=== PATIENT | female | born 1955 | race Caucasian/White ===

== ENCOUNTER 2016-12-04 05:54 | Inpatient (IN) | payer MEDICARE, OTHER ==
[2016-11-27 10:59] LABS: BASOPHILS 0.3 %; BASOPHILS ABSOLUTE 0.03 10/3/uL (0.0-0.16); EOSINOPHILS 0.2 %; EOSINOPHILS ABSOLUTE 0.02 10/3/uL (0.0-0.53); HEMATOCRIT 29.3 % (36.0-48.0); HEMOGLOBIN 9.8 g/dL (12.0-16.0); IMMATURE GRANULOCYTES 0.4 %; IMMATURE GRANULOCYTES ABSOLUTE 0.05 10/3/uL (0.0-0.11); LYMPHOCYTES 11.6 %; LYMPHOCYTES ABSOLUTE 1.35 10/3/uL (0.67-4.30); MEAN CORPUS HGB CONC 33.4 g/dL (32.0-36.0); MEAN CORPUSCULAR VOLUME 92.7 fL (80-100); MEAN PLATELET VOLUME 8.8 fL (9.2-13.0); MONOCYTES 5.7 %; MONOCYTES ABSOLUTE 0.66 10/3/uL (0.21-1.20); NEUTROPHILS 81.8 %; PLATELET COUNT 538 10/3/uL (150-400); RBC DISTRIBUTION WIDTH 17.8 % (12.0-16.0); RED CELL COUNT 3.16 10/6/uL (4.0-5.6); WHITE BLOOD CELLS 11.6 10/3/uL (4.5-10.5)
[2016-11-27 11:00] LABS: MANUAL DIFF NO %
[2016-11-27 11:05] LABS: INTERNATIONAL NORMAL RATI 1.9 UNITS (-); PROTIME (NOT ORD) 21.3 SEC (12.0-14.5)
[2016-11-27 11:12] LABS: BUN (BLOOD UREA NITROGEN) 17 MG/DL (6-23); CALCIUM, SERUM 8.8 MG/DL (8.5-10.4); CHLORIDE, SERUM 102 MMOL/L (96-112); CO2 (CARBON DIOXIDE) 31 MMOL/L (24-34); CREATININE 0.74 MG/DL (0.55-1.02); GFR AFRICAN AMERICAN 101 ML/MIN (>=60); GFR NON AFRICAN AMERICAN 87 ML/MIN (>=60); GLUCOSE, SERUM 105 MG/DL (60-99); POTASSIUM, SERUM 3.7 MMOL/L (3.5-5.3); SODIUM, SERUM 140 MMOL/L (135-148)
--- NOTE | ~2016-12-04 | OP ---
Record Of Operation [facility] [address] [place]. [address] NAME: JORGE BARILLAS : 53 STATUS : DIS IN PAT#: [id number] AGE: 61 ADM/REG DATE : 12/04/16 MR#: [id number] REPORT SERV DATE: 12/05/16 DICTATED BY: JERAMIE SHERMAN. DATE: 12/04/16 REPORT STATUS : Draft TRANSCRIBED BY: MODL DATE: 12/04/16 DATE OF PROCEDURE: 12/04/2016 OPERATIVE SURGEON: Jeramie Sherman M.D. OPERATIVE GOLF COURSE MANAGER: PRAVEENA Mercer COMPLICATIONS: None. ESTIMATED BLOOD LOSS: Less than 100 mL. DISPOSITION: Stable to recovery room. ANESTHESIA: General. PREOPERATIVE DIAGNOSES: 1. Right shoulder pain. 2. End-stage glenohumeral joint osteoarthritis. POSTOPERATIVE DIAGNOSES: 1. Right shoulder pain. 2. End-stage glenohumeral joint osteoarthritis. OPERATIVE PROCEDURE: 1. Right shoulder examination under anesthesia. 2. Right total shoulder arthroplasty using Biomet comprehensive total shoulder system. IMPLANTS USED: A 4 mm small glenoid with Regenerex post a 46 x 18 mm modular head with a standard adapter with B offset and an 11 x 83 mm mini humeral stem. OPERATIVE PROCEDURE: The diagnoses listed above as well as the recommended surgical procedure and risks and benefits thereof were discussed in full detail with Jorge Barillas and her family on the morning of 12/04/2016. The patient and family asked appropriate questions which were answered to their satisfaction. An informed consent was signed, witnessed, and place in the chart. The right upper extremity was marked for confirmation and an interscalene block was placed by the anesthesia team with good success. The patient was then wheeled to the operative arena where general endotracheal anesthesia was administered. The patient was placed in the beachchair positioner with all nonoperative extremities and head well padded and secured for the duration of the case. The patient received pre- operative antibiotics. A surgical pause was performed confirming both the correct patient as well as the proper surgical site and procedure. All present were in agreement. All standard anatomical landmarks as well as deltopectoral incision site were demarcated using a sterile marking pin. A 10-blade was used to create an 8 cm curvilinear incision just lateral to the coracoid process and directed towards the lateral insertion of the deltoid. The soft tissues were dissected down sharply to expose the deltopectoral fascia. Record Of Operation [facility] [address] [place]. [address] NAME: JORGE BARILLAS : 53 STATUS : DIS IN PAT#: [id number] AGE: 61 ADM/REG DATE : 12/04/16 MR#: [id number] REPORT SERV DATE: 12/05/16 DICTATED BY: JERAMIE SHERMAN DATE: 12/04/16 REPORT STATUS : Draft TRANSCRIBED BY: CALLUM DATE: 12/04/16 The cephalic vein and the fat stripe were identified. The vein was retracted medially using careful sharp dissection. Next, a [employer] retractor was placed retracting the deltoid laterally and the pectoralis and coracobrachialis medially. The deltopectoral interval was the further exposed and the clavipectoral fascia was identified. Electrocautery was used to split the clavipectoral fascia exposing the anterior surface of the subscapularis. The lesser tuberosity was identified and the subscapularis was released 1 cm medial to the lesser tuberosity. The subscapularis was then tagged using Fiber Wire suture for later repair. The biceps tendon was then released and tagged as well for later tenodesis. The glenohumeral joint was then dislocated and the humeral head was brought out the operative wound very carefully. All osteophytes were then removed using a rongeur. Our starting awl was used with increasing sizes of diaphyseal reamers to obtain the best fit with excellent cortical chatter. The intramedullary cutting jig was then assembled and set with the appropriate version to meet the patient's normal anatomy. An oscillating saw was then used to make our proximal humeral cut. The proximal humeral portion of the head was then taken to the back table and measured and matched up with our trial implants. Next, the broaches were used in increasing sizes up to the size which fit most perfectly. The head protector was placed and the proximal humerus was retracted posteriorly and inferiorly out of the way of the glenoid. The labrum was then excised in full using electrocautery. All additional osteophytes and osteochondral loose bodies were removed. Next, the glenoid reamers were used to ream the glenoid down to a healthy bleeding bone surface. Our central peg hole was then drilled and our peg guide was used to drill the subsequent three peg holes. A coring drill was then used to core for the glenoid post. A trial glenoid was then placed and found to fit perfectly. Next, the cement was mixed and placed into the peg holes. A polyethylene glenoid was assembled with an appropriate post and tapped into place. An excellent scratch fit was obtained. Pulsatile lavage was used to irrigate this implant as well as the glenohumeral joint. The proximal humerus was again brought out the operative wound. Trial humeral head implants were then tested. The stem was implanted into the proximal humerus after copious irrigation with sterile saline. This was impacted into place. Our Versa Dial was set and then impacted on the back table with an excellent Cool-Taper fit. This was then placed into the proximal humeral stem component and impacted into place with excellent security. At this juncture, the glenohumeral joint was then reduced once again. The glenohumeral joint alignment was near anatomic. Irrigation was used under pulsatile lavage to irrigate out the operative wound as well as the implants. Bone holes had been predrilled through the lesser tuberosity and four #2 Fiber Wire sutures were passed through this region. These were then taken through the soft tissues laterally and then tied down to our previously placed subscapularis sutures. An excellent repair of the subscapularis was obtained back down to the lesser tuberosity with no instability whatsoever. The biceps tendon was then tenodesed. The rotator interval was then closed also with #2 Fiber Wire suture. This layer was then again washed out with pulsatile lavage and copious amounts of sterile normal saline. The deltopectoral interval was closed with 2-0 undyed Vicryl. 2-0 undyed Vicryl was used to close the subcutaneous layer and a running Monocryl was placed below the skin. Steri-Strips were applied. Sterile dressing was then secured with Medipore tape. The patient was placed in an Ultra-Sling for post-operative immobilization. The patient was then awakened from anesthesia without difficulty and transferred to the post-anesthesia care unit in stable condition where the postoperative examination was within normal limits understanding that Record Of Operation [facility] [address] [facility] [address] [place]. [address] NAME: JORGE BARILLAS : 53 STATUS : DIS IN PAT#: [id number] AGE: 61 ADM/REG DATE : 12/04/16 MR#: [id number] REPORT SERV DATE: 12/05/16 DICTATED BY: JERAMIE SHERMAN. DATE: 12/04/16 REPORT STATUS : Draft TRANSCRIBED BY: CALLUM DATE: 12/04/16 the interscalene block was still in affect. A lengthy discussion was held with the patient's family detailing all operative findings as well as procedures performed with all questions answered to their satisfaction. CCS/CALLUM Jeramie Shemran M.D. / [id number] CC: Jeramie Sherman M.D.
--- NOTE | ~2016-12-04 | DS ---
Discharge Summary [facility] [address] [place]. [address] NAME: JORGE BARILLAS : 53 STATUS : DIS IN PAT#: [id number] AGE: 61 ADM/REG DATE : 12/04/16 MR#: [id number] REPORT SERV DATE: 12/18/16 DICTATED BY: DARRELL SHERMAN DATE: 12/17/16 REPORT STATUS : Draft TRANSCRIBED BY: CALLUM DATE: 12/17/16 Data Collection from hospitalization DISCHARGE DIAGNOSES: 1. Right shoulder pain. 2. End-stage glenohumeral joint osteoarthritis. 3. Hypertension. 4. Atrial fibrillation. 5. Rheumatoid arthritis. 6. Anemia. 7. Chronic pain. 8. Depression. 9. Gastroesophageal reflux disease. 10.Former smoker. CONSULTATIONS: None. PROCEDURES PERFORMED: Right shoulder examination under anesthesia, right total shoulder arthroplasty using BiomLemoptix comprehensive total shoulder system, 12/04/2016. PATHOLOGY: Bone, right total shoulder arthroplasty-degenerative changes, fatty marrow with areas of medullary fibrosis. No tumor or active inflammation. MEDICATIONS: Orencia 500 mg IV monthly, aspirin 162 mg daily, Celebrex 200 mg daily, vitamin D 1000 units daily, Lovenox 100 mg subcutaneously twice a day, folic acid 1 mg daily, Lasix 40 mg daily, Neurontin 200 mg twice a day, magnesium chloride 64 mg three times a day, methotrexate 1 mL subcutaneously on Mondays, Toprol-XL 25 mg every day at bedtime, multivitamin one tablet daily, Prilosec 20 mg twice a day, Zofran 4 mg every six hours as needed. CONDITION AT DISCHARGE: Stable. DISPOSITION: The patient was discharged home to be followed by home health care on a regular diet with activities as instructed. She would follow up with me, 12/17/2016. HOSPITAL COURSE: This is a 61-year-old female, who had complained of right shoulder pain. The patient does have end-stage glenohumeral joint osteoarthritis. Treatment options were discussed and it was elected to proceed with surgical intervention. She was admitted to the hospital at this time for further evaluation and treatment. Upon admission, she was taken to the operating room, where she underwent the above-mentioned procedure. She tolerated this well and there were no complications. On postop day one, she was up sitting in a chair. She was doing well. She was in no acute distress. There was a sling in place on the right arm. Potassium supplementation was started. Toprol was continued as well as Coumadin, aspirin, and Lovenox. She remained on Protonix and methotrexate. On the , she said she was feeling much better. White count was 11.6. We encouraged her to mobilize with Physical Therapy. Over the next couple of days, she continued to do well. She said she was feeling stronger. Discharge planning was performed. Discharge Summary [facility] [address] [place]. [address] NAME: JORGE BARILLAS : 53 STATUS : DIS IN PAT#: [id number] AGE: 61 ADM/REG DATE : 12/04/16 MR#: [id number] REPORT SERV DATE: 12/18/16 DICTATED BY: DARRELL SHERMAN. DATE: 12/17/16 REPORT STATUS : Draft TRANSCRIBED BY: CALLUM DATE: 12/17/16 On 12/08/2016, the patient was doing well. Blood pressure was stable. She was evaluated by Physical Therapy. Discharge instructions were given. Due to her improved and stable condition, she was discharged home to be followed by home health care with the above-stated instructions. Information collected by: Mila Butler I submit the above information as my discharge summary. NOA/CALLUM Darrell Sherman M.D. / [id number] CC: Wilmar Leon LISA M
--- NOTE | ~2016-12-04 | OP ---
Record Of Operation [facility] [address] [place]. [address] NAME: JORGE BARILLAS : 53 STATUS : DIS IN PAT#: [id number] AGE: 61 ADM/REG DATE : 12/04/16 MR#: [id number] REPORT SERV DATE: 12/05/16 DICTATED BY: JERAMIE SHERMAN. DATE: 12/04/16 REPORT STATUS : Draft TRANSCRIBED BY: MODL DATE: 12/04/16 DATE OF PROCEDURE: 12/04/2016 OPERATIVE SURGEON: Jeramie Sherman M.D. OPERATIVE BODY TECHNICIAN/PAINTER: PRAVEENA Mercer COMPLICATIONS: None. ESTIMATED BLOOD LOSS: Less than 100 mL. DISPOSITION: Stable to recovery room. ANESTHESIA: General. PREOPERATIVE DIAGNOSES: 1. Right shoulder pain. 2. End-stage glenohumeral joint osteoarthritis. POSTOPERATIVE DIAGNOSES: 1. Right shoulder pain. 2. End-stage glenohumeral joint osteoarthritis. OPERATIVE PROCEDURE: 1. Right shoulder examination under anesthesia. 2. Right total shoulder arthroplasty using Biomet comprehensive total shoulder system. IMPLANTS USED: A 4 mm small glenoid with Regenerex post a 46 x 18 mm modular head with a standard adapter with B offset and an 11 x 83 mm mini humeral stem. OPERATIVE PROCEDURE: The diagnoses listed above as well as the recommended surgical procedure and risks and benefits thereof were discussed in full detail with Jorge Barillas and her family on the morning of 12/04/2016. The patient and family asked appropriate questions which were answered to their satisfaction. An informed consent was signed, witnessed, and place in the chart. The right upper extremity was marked for confirmation and an interscalene block was placed by the anesthesia team with good success. The patient was then wheeled to the operative arena where general endotracheal anesthesia was administered. The patient was placed in the beachchair positioner with all nonoperative extremities and head well padded and secured for the duration of the case. The patient received pre- operative antibiotics. A surgical pause was performed confirming both the correct patient as well as the proper surgical site and procedure. All present were in agreement. All standard anatomical landmarks as well as deltopectoral incision site were demarcated using a sterile marking pin. A 10-blade was used to create an 8 cm curvilinear incision just lateral to the coracoid process and directed towards the lateral insertion of the deltoid. The soft tissues were dissected down sharply to expose the deltopectoral fascia. Record Of Operation [facility] [address] [place]. [address] NAME: JORGE BARILLAS : 53 STATUS : DIS IN PAT#: [id number] AGE: 61 ADM/REG DATE : 12/04/16 MR#: [id number] REPORT SERV DATE: 12/05/16 DICTATED BY: JERAMIE SHERMAN DATE: 12/04/16 REPORT STATUS : Draft TRANSCRIBED BY: CALLUM DATE: 12/04/16 The cephalic vein and the fat stripe were identified. The vein was retracted medially using careful sharp dissection. Next, a [employer] retractor was placed retracting the deltoid laterally and the pectoralis and coracobrachialis medially. The deltopectoral interval was the further exposed and the clavipectoral fascia was identified. Electrocautery was used to split the clavipectoral fascia exposing the anterior surface of the subscapularis. The lesser tuberosity was identified and the subscapularis was released 1 cm medial to the lesser tuberosity. The subscapularis was then tagged using Fiber Wire suture for later repair. The biceps tendon was then released and tagged as well for later tenodesis. The glenohumeral joint was then dislocated and the humeral head was brought out the operative wound very carefully. All osteophytes were then removed using a rongeur. Our starting awl was used with increasing sizes of diaphyseal reamers to obtain the best fit with excellent cortical chatter. The intramedullary cutting jig was then assembled and set with the appropriate version to meet the patient's normal anatomy. An oscillating saw was then used to make our proximal humeral cut. The proximal humeral portion of the head was then taken to the back table and measured and matched up with our trial implants. Next, the broaches were used in increasing sizes up to the size which fit most perfectly. The head protector was placed and the proximal humerus was retracted posteriorly and inferiorly out of the way of the glenoid. The labrum was then excised in full using electrocautery. All additional osteophytes and osteochondral loose bodies were removed. Next, the glenoid reamers were used to ream the glenoid down to a healthy bleeding bone surface. Our central peg hole was then drilled and our peg guide was used to drill the subsequent three peg holes. A coring drill was then used to core for the glenoid post. A trial glenoid was then placed and found to fit perfectly. Next, the cement was mixed and placed into the peg holes. A polyethylene glenoid was assembled with an appropriate post and tapped into place. An excellent scratch fit was obtained. Pulsatile lavage was used to irrigate this implant as well as the glenohumeral joint. The proximal humerus was again brought out the operative wound. Trial humeral head implants were then tested. The stem was implanted into the proximal humerus after copious irrigation with sterile saline. This was impacted into place. Our Versa Dial was set and then impacted on the back table with an excellent Cool-Taper fit. This was then placed into the proximal humeral stem component and impacted into place with excellent security. At this juncture, the glenohumeral joint was then reduced once again. The glenohumeral joint alignment was near anatomic. Irrigation was used under pulsatile lavage to irrigate out the operative wound as well as the implants. Bone holes had been predrilled through the lesser tuberosity and four #2 Fiber Wire sutures were passed through this region. These were then taken through the soft tissues laterally and then tied down to our previously placed subscapularis sutures. An excellent repair of the subscapularis was obtained back down to the lesser tuberosity with no instability whatsoever. The biceps tendon was then tenodesed. The rotator interval was then closed also with #2 Fiber Wire suture. This layer was then again washed out with pulsatile lavage and copious amounts of sterile normal saline. The deltopectoral interval was closed with 2-0 undyed Vicryl. 2-0 undyed Vicryl was used to close the subcutaneous layer and a running Monocryl was placed below the skin. Steri-Strips were applied. Sterile dressing was then secured with Medipore tape. The patient was placed in an Ultra-Sling for post-operative immobilization. The patient was then awakened from anesthesia without difficulty and transferred to the post-anesthesia care unit in stable condition where the postoperative examination was within normal limits understanding that Record Of Operation [facility] [address] [facility] [address] [place]. [address] NAME: JORGE BARILLAS : 53 STATUS : DIS IN PAT#: [id number] AGE: 61 ADM/REG DATE : 12/04/16 MR#: [id number] REPORT SERV DATE: 12/05/16 DICTATED BY: JERAMIE SHERMAN. DATE: 12/04/16 REPORT STATUS : Draft TRANSCRIBED BY: CALLUM DATE: 12/04/16 the interscalene block was still in affect. A lengthy discussion was held with the patient's family detailing all operative findings as well as procedures performed with all questions answered to their satisfaction. CCS/CALLUM Jeramie Sherman M.D. / [id number] CC: Jeramie Sherman M.D.
[~2016-12-04 05:54] MED LIST: AMIT100 PO; ASAB PO; ATEN25 PO; ATV1 PO; CALTRA600D PO; CELEBREX2 PO; CENTRUM TAB1 TAB PO; COUMADIN10 MG PO; COUMADIN6 MG PO; COUMADIN7.5 MG PO; EFFEX75 PO; EFFEXOR XR150 MG PO; FOLIC PO; KLOR-CON M2020 MEQ PO; L20 PO; L40 PO; LORTAB10 PO; LOVENOX1C SC; LOVENOX80 SC; MAG6464 MG PO; MTX50 SQ; MULTIVITAMI1 PO; NEUR100 PO; NORV25 PO; ORENCIA250 MG IV; P10 PO; PLAQ200B PO; PRILO PO; TOPXL25 PO; ULTRAM50 PO; VICODINTAB PO; VITAMIN D1000 UNI1 PO; VITAMIN D31000 UNIT PO; VITC500 PO; ZOFRAN4 PO; [UNRECOGNIZED DRUG - OTHER] PO
[2016-12-04 07:48] LABS: INTERNATIONAL NORMAL RATI 1.1 UNITS (-)
[2016-12-05 05:32] LABS: HEMOGLOBIN 8.5 g/dL (12.0-16.0)
[2016-12-05 05:33] LABS: HEMATOCRIT 25.7 % (36.0-48.0); INTERNATIONAL NORMAL RATI 1.1 UNITS (-); PROTIME (NOT ORD) 14.4 SEC (12.0-14.5)
[2016-12-05 05:40] LABS: CALCIUM, SERUM 8.7 MG/DL (8.5-10.4); CHLORIDE, SERUM 108 MMOL/L (96-112); CO2 (CARBON DIOXIDE) 28 MMOL/L (24-34); CREATININE 0.86 MG/DL (0.55-1.02); GFR AFRICAN AMERICAN 84 ML/MIN (>=60); GFR NON AFRICAN AMERICAN 72 ML/MIN (>=60); GLUCOSE, SERUM 89 MG/DL (60-99); POTASSIUM, SERUM 3.3 MMOL/L (3.5-5.3); SODIUM, SERUM 143 MMOL/L (135-148)
[2016-12-05 05:42] LABS: BUN (BLOOD UREA NITROGEN) 13 MG/DL (6-23)
[2016-12-06 05:47] LABS: HEMATOCRIT 24.3 % (36.0-48.0); HEMOGLOBIN 8.2 g/dL (12.0-16.0)
[2016-12-06 05:59] LABS: INTERNATIONAL NORMAL RATI 1.3 UNITS (-); PROTIME (NOT ORD) 15.8 SEC (12.0-14.5)
[2016-12-06 06:06] LABS: BUN (BLOOD UREA NITROGEN) 12 MG/DL (6-23); CALCIUM, SERUM 8.4 MG/DL (8.5-10.4); CHLORIDE, SERUM 109 MMOL/L (96-112); CO2 (CARBON DIOXIDE) 28 MMOL/L (24-34); CREATININE 0.73 MG/DL (0.55-1.02); GFR AFRICAN AMERICAN 102 ML/MIN (>=60); GFR NON AFRICAN AMERICAN 88 ML/MIN (>=60); GLUCOSE, SERUM 91 MG/DL (60-99); POTASSIUM, SERUM 3.6 MMOL/L (3.5-5.3); SODIUM, SERUM 142 MMOL/L (135-148)
[2016-12-07 05:38] LABS: HEMATOCRIT 24.8 % (36.0-48.0); HEMOGLOBIN 8.1 g/dL (12.0-16.0)
[2016-12-07 05:48] LABS: INTERNATIONAL NORMAL RATI 1.4 UNITS (-); PROTIME (NOT ORD) 16.6 SEC (12.0-14.5)
[2016-12-08 04:50] LABS: HEMATOCRIT 24.3 % (36.0-48.0); HEMOGLOBIN 8.1 g/dL (12.0-16.0)
[2016-12-08 04:52] LABS: INTERNATIONAL NORMAL RATI 1.5 UNITS (-); PROTIME (NOT ORD) 18.1 SEC (12.0-14.5)
[2016-12-08] MEDS ORDERED: ZOFRAN4 PO (11:13)
[2016-12-08] MEDS ORDERED: PCET PO (11:14)
== END 2016-12-08 15:32 | disposition home or self-care (01) | DRG 483 ==
LOC: SDC/OF 05:54 → PACU 11:43 → 3SO 14:07
PROVIDERS: Nurse Practitioner Acute Care; Specialist
PROC: 0RRJ0JZ Replacement of Right Shoulder Joint with Synthetic Substitute, Open Approach (ICD-10-PCS; principal; 2016-12-04 07:45)
DX: M19.011 Primary osteoarthritis, right shoulder (principal); I48.2 Chronic atrial fibrillation; I10 Essential (primary) hypertension; I25.10 Atherosclerotic heart disease of native coronary artery without angina pectoris; Z79.01 Long term (current) use of anticoagulants; M06.9 Rheumatoid arthritis, unspecified
CPT/HCPCS: 36415; 73030-RT; 80048; 84132; 85014; 85018; 85025; 85610; 86850; 86900; 86901; 87641; 88305; 88311; 93005; 97110-GP; 97116-GP; 97161-GP; A9270-GY; C1776; J0690; J1170; J2250; J2370; J2405; J2550; J2710; J3010; J3370